=== PATIENT | male | born 2005 | race Caucasian/White ===

== ENCOUNTER → 2023-10-14 08:47 | Outpatient (REF) | payer BC, SELFPAY | LOC: HWRAD 08:47 | PROVIDERS: ATTENDING PHYSICIAN Otolaryngology; FAMILY PHYSICIAN Student in an Organized Health Care Education/Training Program | DX: J32.0 Chronic maxillary sinusitis (principal); R09.81 Nasal congestion | CPT/HCPCS: 70486 ==